=== PATIENT | female | born 1955 | race Caucasian/White ===

== ENCOUNTER → 2017-11-30 | Outpatient (CLI) | payer BC ==
--- NOTE | 2017-11-30 16:31 | KCIC ---
History: Postmenopausal screening, long-term drug therapy, white female. Comparison: January 25, 2013. Findings: Bone Densitometry was performed with dual photon absorption of the lumbar spine and left hip. Lumbar Spine: Bone density is 1.155 g/cm2 for L1-L4. T-Score is 1.0. Z-score is 2.4. Bone mineral density of the lumbar spine demonstrates 1.1% increase from previous study. Left hip: Bone density is 0.911 g/cm2. T-Score is -0.3. Z-score is 0.7. Bone mineral density of the left hip demonstrates 0.3% decrease from previous study. IMPRESSION: Bone mineral density of the lumbar spine and left hip appears within normal limits. World Health definition of osteoporosis and osteopenia: Normal = T-Score at or above -1.0; osteopenia = T-score between -1.0 and -2.5; osteoporosis = T-score at or below -2.5 Electronically signed by: Doni Hutson MD (11/30/2017 4:29 PM) [facility]
== END | disposition home or self-care (01) ==
LOC: KCIC DEXA 10:56
PROVIDERS: ATTEND Family Medicine
DX: Z13.820 Encounter for screening for osteoporosis (principal); Z78.0 Asymptomatic menopausal state; Z79.899 Other long term (current) drug therapy
CPT/HCPCS: 77080